=== PATIENT | female | born 1995 | race Caucasian/White ===

== ENCOUNTER 2024-05-01 18:41 | Emergency (ER) | payer SELFPAY ==
[~2024-05-01] VITALS: Ht 152.4 cm; Wt 64.0 kg
[2024-05-01 18:55] VITALS: O2SAT 98
[2024-05-01 19:52] LABS: BASOPHILS % 0.4 % (0.0-2.0); CARBON DIOXIDE 16 mEq/L (21-32); CHLORIDE 110 mEq/L (98-107); EOSINOPHILS % 0.3 % (0.0-5.0); HEMATOCRIT. 42.1 % (36.0-48.0); HEMOGLOBIN. 14.5 g/dL (12.0-16.0); LYMPHOCYTES % 14.4 % (20.0-50.0); MEAN CORPUSCULAR HEMOGLOBIN 30.8 pg (28.0-32.0); MEAN CORPUSCULAR HGB CONC 34.5 g/dL (31.0-37.0); MEAN CORPUSCULAR VOLUME 89.2 fL (81.0-99.0); MEAN PLATELET VOLUME 8.6 fl (7.4-10.4); MONOCYTES % 6.8 % (2.0-8.0); NEUTROPHILS % 78.1 % (40.0-76.0); PLATELET 207 x1000/uL (130-400); POTASSIUM 3.7 mEq/L (3.5-5.1); RED BLOOD CELL COUNT 4.73 mill/uL (4.2-5.4); RED CELL DISTRIBUTION WIDTH 12.5 % (11.6-14.6); SODIUM 137 mEq/L (136-145); WHITE BLOOD COUNT 4.2 x1000/uL (4.5-11.0)
[2024-05-01 19:53] LABS: CALCIUM 9.2 mg/dL (8.7-10.4)
[2024-05-01 19:57] LABS: CREATININE 0.8 mg/dL (0.6-1.0)
[2024-05-01 19:58] LABS: GLUCOSE 96 mg/dL (70-105); UREA NITROGEN BLOOD 13 mg/dL (9-23)
[2024-05-01 19:59] LABS: ALANINE AMINOTRANSFERASE 14 IU/L (10-49); ALBUMIN 4.5 g/dL (3.2-4.8); ASPARTATE AMINOTRANSFERASE 19 IU/L (<34)
[2024-05-01 20:00] LABS: BILIRUBIN DIRECT 0.1 mg/dL (<=3.0); BILIRUBIN TOTAL 0.4 mg/dL (0.1-1.0); PROTEIN TOTAL 7.3 g/dL (6.0-8.3)
[2024-05-01 20:01] LABS: INR 0.9; PROTHROMBIN TIME 10.4 sec (9.6-11.0)
[2024-05-01 20:04] LABS: HCG SCREEN NEGATIVE
[2024-05-01 20:09] LABS: CLARITY URINE CLOUDY (CLEAR); COLOR URINE YELLOW (YELLOW); GLUCOSE URINE NEGATIVE (NEGATIVE); KETONES URINE 3+ (NEGATIVE); LEUKOCYTE ESTERASE URINE NEGATIVE (NEGATIVE); NITRITE URINE NEGATIVE (NEGATIVE); OCCULT BLOOD URINE 2+ (NEGATIVE); PROTEIN URINE 1+ (NEGATIVE); SPECIFIC GRAVITY URINE 1.027 (1.005-1.030)
[2024-05-01 20:43] LABS: BACTERIA URINE 1+; SQUAMOUS EPITHELIAL CELL URINE 2+ /lpf (RARE/1+); WBC URINE 0-2 /hpf (0-2)
[2024-05-02] MEDS: ACETAMINOPHEN 325MG TABLET PO ONE
[2024-05-02 00:02] VITALS: BP 111/69; PULSE 94; RESP 20; TEMP 36.94740; O2SAT 100
== END 2024-05-02 00:02 | disposition home or self-care (01) ==
LOC: ER 18:41
DX: R11.2 Nausea with vomiting, unspecified (principal); B34.9 Viral infection, unspecified; R53.83 Other fatigue
CPT/HCPCS: 36415; 74176; 80048; 80076; 81003; 84703; 85025; 99284

== ENCOUNTER 2024-11-04 19:37 | Emergency (ER) | payer SELFPAY ==
[~2024-11-04] VITALS: Ht 172.7 cm; Wt 50.0 kg
[2024-11-04 19:40] VITALS: O2SAT 99
[2024-11-04] MEDS: KETOROLAC 30MG/ML VIAL IM ONE (21:32)
[2024-11-04] MEDS: CYCLOBENZAPRINE 10MG TABLET PO ONE (21:36)
[2024-11-04] MEDS ORDERED: IBUP-2029 MT (21:46)
[2024-11-04] MEDS ORDERED: CYCL10TA21 MT (21:46)
[2024-11-04 22:12] VITALS: BP 107/34; PULSE 64; RESP 19; TEMP 37.1; O2SAT 98
== END 2024-11-04 22:19 | disposition home or self-care (01) ==
LOC: ER 19:37
DX: S20.211A Contusion of right front wall of thorax, initial encounter (principal); M54.2 Cervicalgia; X58.XXXA Exposure to other specified factors, initial encounter; Y93.89 Activity, other specified; Y92.89 Other specified places as the place of occurrence of the external cause; Y99.8 Other external cause status
CPT/HCPCS: 99285; 72125; 71045; 81025; 96372; J1885